=== PATIENT | female | born 1955 | race African-American/Black ===

== ENCOUNTER 2016-12-31 14:52 | Emergency (ER) | payer OTHER ==
[2016-12-31 15:06] VITALS: BP 122/80
[2016-12-31] MEDS ORDERED: TRIAMCINOLONE ACETONIDE 15 APPL TUBE TP ONE ×2 (16:11→16:20)
--- OUTSIDE RECORDS SUMMARY | 2016-12-31 16:16 | XMS REPORT | Continuity of Care Document ---
:1955 Author Organization [facility] ([facility]) Address [address] [place] [address] Phone [phone] Care Team Providers Name Role Phone Melissa Sarkar Primary Care Provider [phone] Source Comments This disclosure is being made pursuant to the Care Everywhere program, applicable federal and state laws, and may not contain all informaitonavailable regarding this patient.[facility] ([facility]) Active Allergies and Adverse Reactions Allergen Noted Date Severity Reactions Comments Ciprofloxacin 01/16/2016 Nausea & Vomiting Current Medications Prescription Sig. Disp. Refills Start Date End Date Status lisinopril-hydrochlorothi Take 1 tablet by Active azide 10-12.5 mg per mouth daily. tablet traMADol 50 mg tablet Take 50 mg by mouth Active 4 times daily as needed. naproxen 500 mg tablet Take 500 mg by Active mouth 2 times daily with meals as needed. Active Problems Problem Noted Date Non morbid obesity due to excess calories 03/19/2016 S/P ERCP 03/17/2016 History of sphincterotomy of sphincter of Oddi 03/17/2016 Obstructive cholestatic liver disease 03/17/2016 Obesity (BMI 30.0-34.9) 03/17/2016 Essential hypertension 03/17/2016 S/P laparoscopic cholecystectomy 03/17/2016 Overview: 2007 Elevated lipase 03/17/2016 Resolved Problems Problem Noted Date Resolved Date Abdominal pain, epigastric 01/16/2016 01/18/2016 Choledocholithiasis 01/16/2016 01/18/2016 Social History Tobacco Use Types Packs/Day Years Used Date Never Smoker Alcohol Use Drinks/Week oz/Week Comments No Last Filed Vital Signs Vital Sign Reading Time Taken Blood Pressure 146/95 03/17/2016 11:52 AM CDT Pulse 82 03/17/2016 11:52 AM CDT Temperature 36.5 C (97.7 F) 03/17/2016 11:52 AM CDT Respiratory Rate 16 01/18/2016 12:00 PM CDT Height 1.702 m (5' 7") 03/19/2016 9:21 PM CDT Weight 96.5 kg (212 lb 11.9 oz) 03/19/2016 9:21 PM CDT Body Mass Index 33.31 03/19/2016 9:21 PM CDT Oxygen Saturation 96% 01/18/2016 12:00 PM CDT Plan of Care Health Maintenance Due Date Last Done Comments HCV Screening 1955 Hepatitis B Vaccine (1 of 3 - Primary Series) 1955 Tdap Vaccine 1965 Lipid Disorder Screening 1972 Td Vaccine 1972 Cervical Cancer Screening 1984 Mammogram 1994 Colonoscopy 07/09/2004 Zoster Vaccine 2014 Influenza Vaccine: Seasonal (#1) 03/09/2016 Results from Last 3 Months Not on file
--- NOTE | 2016-12-31 16:22 | ERNOTE ---
Integumentary HPI - Narrative Date of Service: 12/31/16 - General Presenting Symptoms: insect bite Time Seen by Provider: 12/31/16 15:59 Source: patient, RN notes reviewed Exam Limitations: no limitations - Immun/Allergies/Home Medications Immunizations: IMMUNIZATION HX Immunizations Up to Date Yes History of Influenza Vaccine No Hx Pneumococcal Vaccination No Allergies/Adverse Reactions: Allergies Allergy/AdvReac Type Severity Reaction Status Date / Time ciprofloxacin AdvReac Mild Nausea Verified 12/31/16 15:02 Home Medications: HOME MEDICATIONS Lisinopril/Hydrochlorothiazide [Lisinopril-Hctz 10-12.5 mg Tab] 10 mg PO DAILY 09/20/15 [Last Taken Unknown] Naproxen [Naprosyn] 500 mg PO BID 09/20/15 [Last Taken Unknown] traMADol HCL [Ultram] 50 mg PO QID PRN 09/20/15 [Last Taken Unknown] - History of Present Illness Narrative: 61 y/o female ambulatory to the ED for an insect bite or sting to her left anterior upper thigh that occurred while she was taking a nap at 1400. She experienced a sudden stinging pain that woke her up. She began developing redness around the wound and became concerned. Date (Duration): 12/31/16 Time (Timing): 14:00 Location: Reports: lower extremity Quality: Reports: painful Severity: mild Exposure: Reports: no cause identified Associated Symptoms: Denies: blisters, hives, petechiae, swelling/mass/lumps, edema Prior Treatment: Denies: recently seen Review of Systems - Review of Systems Constitutional: Absent: recent illness, fever, chills, malaise EYE: Present: no symptoms reported ENT: Absent: nose congestion, nasal drainage, throat swelling Respiratory: Absent: shortness of breath, wheezing, stridor Cardiology: Absent: chest pain, syncope Gastrointestinal/Abdominal: Absent: nausea, abdominal pain Genitourinary: Present: no symptoms reported Musculoskeletal: Absent: muscle pain, joint pain Skin: Present: lesions, change in color. Absent: rash Neurological: Absent: headache, dizziness/light-headedness, weakness Endocrine: Present: no symptoms reported Hematologic/Lymphatic: Present: no symptoms reported Psych: Present: no symptoms reported - Patient's Past Medical History Patient History - Medical: Osteoarthritis, Other Patient History - Cardiac/Respiratory: Hypertension, Hyperlipidemia Patient History - Cancer: No Hx of Cancer Patient History - Surgical Procedures: Cholecystectomy, Tubal Ligation, Other Patient History - Other: None - Family History Mother Family History - Medical: Family History - Cardiac/Respiratory: Cardiac Arrest Father Family History - Medical: , Diabetes Type 2 Insulin Dependent - Social History Living Situations: home Abuse History: No History of abuse Psych History: No pertinent hx Smoking Status: Never smoker Alcohol Use: none Drug Use: none - Immunizations Immunizations Up to Date: Yes Hx Pneumococcal Vaccination: No History of Influenza Vaccine: No Physical Exam - Physical Exam General Appearance: Present: wd/wn, alert, no apparent distress Neck: Present: normal inspection, nontender, supple Respiratory: Present: no respiratory distress, normal breath sounds, no accessory muscle use, lungs clear Cardiovascular/Chest: Present: regular rate, rhythm, no murmur Extremity Exam: Present: normal inspection, normal range of motion, no edema Neurological Exam: Present: alert, oriented, normal mood/affect, no motor/ sensory deficits Skin Exam: Present: normal color, warm/dry, other - small wheal on left anterior proximal thigh with mild surrounding erythema ED Progress - Vital Signs Patient's Vital Signs:: I have reviewed the patient's vital signs. Vital Signs: Vital Signs 12/31/16 15:03 Temperature 36.7 C Pulse Rate 81 Respiratory 18 Rate Blood Pressure 122/80 O2 Sat by Pulse 97 Oximetry - Progress/Reassessment Chief Complaint: Insect Bite Progress:: Unchanged Departure Clinical Impression: Insect bite of left leg Qualifiers: Encounter type: initial encounter Qualified Code(s): S80.862A - Insect bite ( nonvenomous), left lower leg, initial encounter; W57.XXXA - Bitten or stung by nonvenomous insect and other nonvenomous arthropods, initial encounter - Departure Disposition: Home self-care Condition: Good Instructions: Insect Bite Additional Instructions: Apply steroid cream 3 times a day as directed, can also use Benadryl cream Cold compresses as needed Follow up for fever, worsening redness or other concerns Referrals: Melissa Sarkar MD [Primary Care Provider] -
== END 2016-12-31 16:30 | disposition home or self-care (01) ==
LOC: ER 14:52
DX: S80.862A Insect bite (nonvenomous), left lower leg, initial encounter (principal); W57.XXXA Bitten or stung by nonvenomous insect and other nonvenomous arthropods, initial encounter; I10 Essential (primary) hypertension

== ENCOUNTER 2017-03-11 06:50 | Day surgery (SDC) | payer OTHER ==
[~2017-03-11 06:50] MED LIST: RINGERS SOLUTION,LACTATED 1,000 ML IV PRN
--- NOTE | 2017-03-11 08:37 | OR ---
Operative Report - Dictated Report Narrative: Operative Report Date of operation: 03/11/2017 Preoperative diagnosis: Dysphagia Postoperative diagnosis: Hiatal hernia. Gastropathy. Enterogastric bile reflux (pathology and CLOtest pending) Operation: EGD with biopsies. Balloon esophageal dilation to 20 mm Surgeon: Dr Arredondo Anesthesia: [employer] CRNA Indications for procedure: The patient is a 61-year-old female who last week had a single episode of solid food dysphagia. The food lodged in the mid chest , and she had to wait for the past. Since that time she has had a "different" feeling when she swallows. She has had previous upper GI endoscopy for ERCP Findings: Hiatal hernia with mild distal esophageal inflammation. Thank gastric erythema and friability (pathology and CLOtest pending. Evidence of enterogastric bile reflux. Normal-appearing duodenum. Narrative of procedure: The patient was identified preoperatively, and prior to the administration of anesthetic a multidisciplinary timeout was observed With the patient in the recumbent position, a bite-block was placed, intravenous sedation administered, and the patient's eyes covered with a towel. The flexible fiberoptic gastroscope was advanced into the posterior pharynx which appeared normal. The supraglottic larynx appeared normal. The cords appeared normal, moved well, and opposed in the midline. The scope was advanced under direct vision into the proximal esophagus which appeared normal. The esophagus appeared freely distensible with normal mucosa. The esophageal mucosa appeared normal down to the gastroesophageal junction which was sharp and perhaps mildly inflamed.. The GE junction appeared normally distensible. The scope was advanced into the stomach which was insufflated with air. There was montgomery gastric erythema with flecks of coffee ground material. A retroflexed view of the gastric fundus demonstrated the hiatal hernia but revealed no additional lesions. The pylorus appeared patent. During observation there was evidence of enterogastric bile reflux. The scope was advanced into the duodenal bulb which appeared normal. The scope was advanced further to the horizontal portion of the duodenum which appeared normal , specifically the villous architecture appeared well preserved and clear bile was present. The ampulla was not directly visualized. The scope was slowly withdrawn through the duodenal bulb with confirmation that no active ulcer was present. The scope was withdrawn into the stomach and wireless sales representative biopsies of gastric mucosa obtained for CLOtest and pathology. The biopsy sites were seen to be hemostatic. A balloon dilator was deployed in the stomach and withdrawn to lie across the GE junction which was dilated in stages to 20 mm. The stomach was reentered and the insufflated air was removed. The scope withdrawn from the patient, and the procedure terminated. The patient tolerated the anesthetic and procedure well without complication and was transferred back to the ambulatory surgery area awake and in stable condition. The patient remained stable throughout a period of postoperative observation, was able to tolerate po intake, and was up without assistance. I shared the operative findings with her, and she was given copies of the photographs which appear in the medical record. She was given a single dose of Protonix 40 mg IV prior to discharge. She was discharged home with instructions not to engage in hazardous activity today, but may return to normal activity tomorrow and advance diet as tolerated. She is to continue medications as listed in the history and physical exam. I made arrangements to contact the patient with the biopsy reports and will make further recommendation based upon that result. Reviewed and electronically signed
[2017-03-11] MEDS ORDERED: RINGERS SOLUTION,LACTATED 1,000 ML IV PRN (08:38)
[2017-03-11] MEDS ORDERED: PANTOPRAZOLE SODIUM 40 MG in NORMAL SALINE 100 ML IV ONE (08:38)
[2017-03-11 09:30] VITALS: BP 137/83
== END 2017-03-11 06:51 | disposition home or self-care (01) ==
LOC: AMB 06:50
PROVIDERS: ATTEND Surgery
PROC: 0D748ZZ Dilation of Esophagogastric Junction, Via Natural or Artificial Opening Endoscopic (ICD-10-PCS; 2017-03-11)
PROC: 0DB68ZX Excision of Stomach, Via Natural or Artificial Opening Endoscopic, Diagnostic (ICD-10-PCS; principal; 2017-03-11 08:00)
DX: K29.70 Gastritis, unspecified, without bleeding (principal); K44.9 Diaphragmatic hernia without obstruction or gangrene; K21.9 Gastro-esophageal reflux disease without esophagitis; I10 Essential (primary) hypertension; Z68.35 Body mass index [BMI] 35.0-35.9, adult